=== PATIENT | female | born 1980 | race Caucasian/White ===

== ENCOUNTER 2016-11-24 11:36 | Emergency (ER) | payer OTHER ==
[~2016-11-24 11:36] MED LIST: ATIVAN0.5 MG PO; BENADRYL25 M1 PO; BENADRYL25 M3 PO; DOXYCYCLINE150 MG PO; FIORICET 50-321 EACH PO; GEODAN PO; IMITREX25 MG PO; LAMICTAL PO; LAMICTAL100 MG PO; MEDROL DOSEPAK4 MG PO; PHENERGAN W/CO120 ML PO; PREDNISONE50 MG PO; TRAZODONE PO; VOLTAREN50 MG PO; VOLTAREN75 MG PO; WELLBUTRIN PO; ZANTAC150 MG PO; ZOLOFT100 MG PO
== END 2016-11-24 12:59 | disposition home or self-care (01) ==
LOC: SED 11:36
DX: L23.2 Allergic contact dermatitis due to cosmetics (principal); R21 Rash and other nonspecific skin eruption; F31.9 Bipolar disorder, unspecified; F17.210 Nicotine dependence, cigarettes, uncomplicated
CPT/HCPCS: 99282